=== PATIENT | male | born 1970 | race Caucasian/White ===

== ENCOUNTER 2016-07-20 21:51 | Emergency (ER) | payer BC ==
[2016-07-20 22:06] VITALS: BP 135/68
--- NOTE | 2016-07-20 23:16 | EDM.PDOC ---
ED HPI GENERAL MEDICAL PROBLEM - General Chief Complaint: General Stated Complaint: hit by calf Time Seen by Provider: 07/20/16 22:00 Source of Information: Reports: Patient, Family () History Limitations: Reports: No limitations - History of Present Illness INITIAL COMMENTS - FREE TEXT/NARRATIVE: 45-year-old male presents to the emergency room with complaints of a headache, mild dizziness, one episode of vomiting, and left rib pain that occurred today when he was vaccinating 300 pound cast and was wedged into a gate which he hit with his head and ribs. This occurred approximately at 4:30 this afternoon. She reports significant tenderness over the left rib cage. He denies any shortness of breath or difficulty breathing. He has pain with movement or twisting. He denies loss of consciousness, confusion, difficulty with speech. He waited several hours and finally agreed to come in to be checked out and is brought in today by his . Onset: today Onset Date: 07/20/16 Onset Time: 14:30 Duration: Hour(s):, Improving Location: Reports: head, chest (left RIBS) Quality: Reports: Sharp Severity: moderate Improves with: Reports: Rest Worsens with: Reports: Movement Context: Reports: Lifting, Trauma Associated Symptoms: Reports: nausea/vomiting (vomited one time). Denies: confusion, syncope Treatments [employer]: Reports: Acetaminophen, NSAIDS - Related Data Allergies Allergy/AdvReac Type Severity Reaction Status Date / Time aspirin Allergy Rash Verified 07/20/16 22:07 Penicillins Allergy Hives Verified 07/20/16 22:07 Tdap Allergy Hives Uncoded 07/20/16 22:20 Home Meds: Home Meds Acetaminophen 325 mg PO Q6H PRN 07/20/16 [History] Ibuprofen 200 mg PO Q6H PRN 07/20/16 [History] ED ROS GENERAL - Review of Systems Review Of Systems: See Below Constitutional: Reports: no symptoms HEENT: Reports: No symptoms Respiratory: Reports: No Symptoms Cardiovascular: Reports: No symptoms Endocrine: Reports: no symptoms GI/Abdominal: Reports: No symptoms Musculoskeletal: Reports: other (left rib pain, severe pain to palpation over the eighth rib) Skin: Reports: no symptoms Neurological: Reports: Headache. Denies: Confusion, Syncope, Trouble Speaking, Difficulty Walking, Gait Disturbance Psychiatric: Reports: No symptoms Hematologic/Lymphatic: Reports: no symptoms ED EXAM, GENERAL - Physical Exam Exam: See Below Exam Limited By: No limitations General Appearance: alert, WD/WN, no apparent distress Eye Exam: bilateral eye: EOMI, PERRL Ears: normal external exam, hearing grossly normal, normal TMs Ear Exam: bilateral ear: auricle normal, canal normal, TM normal Nose: normal inspection, normal mucosa Throat/Mouth: Normal inspection, Normal lips, Normal oropharynx, Normal voice, Other (dental decay) Head: atraumatic, normocephalic Neck: normal inspection, supple, full range of motion Respiratory/Chest: no respiratory distress, lungs clear, normal breath sounds, other (patient has is very tender over the left rib cage at approximately the eighth rib) Cardiovascular: normal peripheral pulses, regular rate, rhythm, no murmur Peripheral Pulses: 2+: carotid (L), carotid (R) GI/Abdominal: soft Back Exam: normal inspection, full range of motion Extremities: normal inspection, normal range of motion, no pedal edema Neurological: alert, oriented, CN II-XII intact, normal cognition, normal gait, normal reflexes, no motor/sensory deficits Psychiatric: normal affect, normal mood Skin Exam: Warm, Dry, Intact, Normal color, No rash Lymphatic: no adenopathy Course - Vital Signs Last Recorded V/S: Last Vital Signs Temp 97.1 F 07/20/16 22:03 Pulse 64 07/20/16 22:03 Resp 20 07/20/16 22:03 BP 135/68 07/20/16 22:03 Pulse Ox 97 07/20/16 22:03 - Orders/Labs/Meds Orders: Active Orders 24 hr Category Date Time Status Head wo Cont [CT] Stat Exams 07/20/16 22:11 Taken Ribs 2V w Chest Lt [CR] Stat Exams 07/20/16 22:12 Taken Meds: Medications Discontinued Medications Generic Name Dose Route Start Last Admin Trade Name Freq PRN Reason Stop Dose Admin Acetaminophen/Hydrocodone Bitart 2 tab 07/20/16 23:53 07/21/16 00:10 [place] 325-5 Mg PO 07/20/16 23:54 2 tab ONETIME ONE Administration - Radiology Interpretation Free Text/Narrative:: CT of the head without IV contrast Impression: There is no acute intercranial abnormality X-rays left ribs AP chest and left ribs Impression: Normal left rib x-rays Departure - Departure Time of Disposition: 00:20 Disposition: Home, Self-Care 01 Condition: good Clinical Impression: Head contusion Qualifiers: Encounter type: initial encounter Contusion of head detail: scalp Qualified Code(s): S00.03XA - Contusion of scalp, initial encounter Contusion of rib on left side Qualifiers: Encounter type: initial encounter Qualified Code(s): S20.212A - Contusion of left front wall of thorax, initial encounter Instructions: Head Injury, Adult, Chest Contusion Forms: ED Department Discharge Additional Instructions: 1. [place] 5/325 one to 2 every 6 hours when necessary for pain. 2. rest 3. 24-hour observation for any mental status changes, confusion, change in speech or slurred speech, gait disturbance, worsening of headache, continuous vomiting patient to return back to the emergency room for further evaluation. - My Orders Last 24 Hours: My Active Orders 07/20/16 22:11 Head wo Cont [CT] Stat 07/20/16 22:12 Ribs 2V w Chest Lt [CR] Stat - Assessment/Plan Last 24 Hours: My Active Orders 07/20/16 22:11 Head wo Cont [CT] Stat 07/20/16 22:12 Ribs 2V w Chest Lt [CR] Stat Assessment:: Head contusion Left rib contusion Plan: 1. Rest 2. 24 hour observation for any mental status changes. This was discussed in detail as well as given in the discharge summary and plan the patient and his . He any change in mental status changes they're instructed to return back to the emergency room for further evaluation. 3. [place] 5/325 one to 2 every 6 hours when necessary for pain.
[2016-07-20] MEDS: Acetaminophen/HYDROcodone 325-5 MG Tab PO ONE (23:53)
[2016-07-21] MEDS: Acetaminophen/HYDROcodone 325-5 MG Tab PO ONE (00:10)
== END 2016-07-21 00:20 | disposition home or self-care (01) ==
LOC: KA.ED 21:51
DX: S00.03XA Contusion of scalp, initial encounter (principal); S20.212A Contusion of left front wall of thorax, initial encounter; W55.22XA Struck by cow, initial encounter; Z88.0 Allergy status to penicillin; Z88.8 Allergy status to other drugs, medicaments and biological substances; Z88.7 Allergy status to serum and vaccine
CPT/HCPCS: 70450; 71101; 99284; A9270